=== PATIENT | male | born 2005 | race Hispanic/Latino ===

== ENCOUNTER 2025-06-05 15:11 | Emergency (ER) | payer BC, OTHER ==
[~2025-06-05] VITALS: Ht 182.9 cm; Wt 80.6 kg
[2025-06-05] MEDS ORDERED: DEPAKOTE ER500 MG PO (16:03)
[2025-06-05 17:24] LABS: BLOOD/HGB, URINE NEGATIVE (Negative); KETONE, URINE NEGATIVE (Negative); LEUK ESTERASE, URINE NEGATIVE (negative); NITRITE, URINE NEGATIVE (negative)
[2025-06-05 18:31] LABS: BASOPHILS 0.5 % (0.2-1.2); EOSINOPHILS 0.6 % (0.8-7.0); LYMPHOCYTES 29.7 % (21.8-53.1); MCH 29.8 PG (25.7-32.2); MCHC 34.4 g/dL (32.3-36.5); MCV 86.6 fL (79.0-92.2); MONOCYTES 6.1 % (5.3-12.2); NEUTROPHILS 62.1 % (34.0-67.9); RBC 5.07 M/uL (4.63-6.08)
[2025-06-05 18:53] LABS: ALT (SGPT) 25.0 U/L (14-59); AST (SGOT) 14.0 U/L (15-37); GLOMERULAR FILTRATION RATE,EST 126.0 mL/min (>60); PROTEIN, TOTAL 8.9 g/dL (6.4-8.2); UREA NITROGEN 9.0 mg/dL (7-18)
[2025-06-05 20:42] LABS: VALPROIC ACID 56 ug/mL (50-100)
--- OUTSIDE RECORDS SUMMARY | 2025-06-05 22:17 | XMS ---
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 [place] VISIT COUNT (12 MO.) [address] [place] [address] TOTAL 5 NOTE: Visits indicate total known visits. ED/UCC VISIT TRACKING (12 MO.) 06/05/2025 15:12 [facility] [place] TYPE: Emergency COMPLAINT: - SUICIDAL/HOMIDIDAL 05/10/2025 13:52 [employer] [facility] [place] TYPE: Emergency DIAGNOSES: - Delusional disorders - CHEST PAIN 05/09/2025 02:37 [employer] [facility] [place] TYPE: Emergency DIAGNOSES: - Delusional disorders - MENTAL HEALTH EVAL 05/08/2025 15:38 [facility] [place] TYPE: Emergency COMPLAINT: - chest pain DIAGNOSES: - chest pain 09/27/2024 21:03 [facility] [place] TYPE: Emergency DIAGNOSES: - Sprain of unspecified ligament of left ankle, initial encounter - ANKLE INJURY INPATIENT VISIT TRACKING (12 MO.) 05/11/2025 12:44 [facility] [place] TYPE: Psychiatric Services DIAGNOSES: 0. Bipolar disorder, unspecified 0. Unspecified psychosis not due to a substance or known physiological condition 1. Bipolar disorder, unspecified 2. Patient's other noncompliance with medication regimen for other reason 2. Suicidal ideations [email or web address]
== END 2025-06-05 22:10 | disposition home or self-care (01) ==
LOC: ED 15:11
PROVIDERS: Emergency Medicine; Family Medicine
DX: R00.2 Palpitations (principal); T50.905A Adverse effect of unspecified drugs, medicaments and biological substances, initial encounter; Z79.899 Other long term (current) drug therapy
CPT/HCPCS: 36415; 70450; 71045; 80053; 80164; 81003; 82803; 83690; 85025; 93242; 93244; 99285-25